=== PATIENT | female | born 1945 | race Caucasian/White ===

== ENCOUNTER → 2022-07-06 | Outpatient (CLI) | payer MEDICARE, OTHER | LOC: COL.RAD 10:33 | DX: K59.00 Constipation, unspecified (principal); K31.9 Disease of stomach and duodenum, unspecified; M43.16 Spondylolisthesis, lumbar region; M48.061 Spinal stenosis, lumbar region without neurogenic claudication ==

== ENCOUNTER 2022-08-20 19:39 | Emergency (ER) | payer MEDICARE, OTHER ==
[~2022-08-20] VITALS: Ht 165.1 cm; Wt 56.8 kg
[2022-08-20 19:41] VITALS: TEMP 97.1
[2022-08-20 22:08] VITALS: BP 136/86; PULSE 61
== END 2022-08-20 22:10 | disposition home or self-care (01) ==
LOC: COL.ER 19:39
DX: S06.0X0A Concussion without loss of consciousness, initial encounter (principal); S01.111A Laceration without foreign body of right eyelid and periocular area, initial encounter; Z23 Encounter for immunization; W54.0XXA Bitten by dog, initial encounter; Y93.H2 Activity, gardening and landscaping